=== PATIENT | female | born 1940 | race Caucasian/White ===

== ENCOUNTER 2023-03-31 09:55 | Outpatient (CLI) | payer MEDICARE, BC, SELFPAY ==
[2023-03-31 10:54] LABS: Basophils Absolute Auto 0.1 K/mm3 (0.0-0.1); Basophils Percent Auto 1.1 % (0.2-1.2); Eosinophils Absolute Auto 0.1 K/mm3 (0-0.3); Eosinophils Percent Auto 2.6 % (0-4.4); Hematocrit 36.7 % (37.0-47.0); Hemoglobin 11.7 g/dL (12.0-15.0); Immature Granulocyte Absolute 0.01 K/mm3 (0.00-0.031); Immature Granulocyte Percent A 0.2 % (0-0.5); Lymphocytes Absolute Auto 0.78 K/mm3 (0.9-3.2); Lymphocytes Percent Auto 14.3 % (18.3-44.2); Mean Corpuscular HGB Conc 31.9 g/dl (32-36); Mean Corpuscular Hemoglobin 31.7 pg (26-34); Mean Corpuscular Volume 99.5 fl (80-100); Mean Platelet Volume 10.4 fl (7.4-10.4); Monocytes Absolute Auto 0.4 K/mm3 (0.1-0.6); Monocytes Percent Auto 6.8 % (2.6-8.5); Neutrophils Absolute Auto 4.1 K/mm3 (1.3-6.7); Platelet Count Result 254 k/mm3 (150-375); Red Blood Count 3.69 M/mm3 (4.2-5.4); Red Cell Distribution Width 13.3 % (11.5-14.5); White Blood Count 5.4 K/mm3 (4.5-10.0)
[2023-03-31 11:01] LABS: Add Urine Microscopic? YES; Appearance Urine Turbid (Clear); Bacteria Urine None Seen /hpf; Bilirubin Urine Negative (Negative); Blood Urine Negative (Negative); Color Urine Yellow (Yellow); Glucose Urine UA Negative (Negative); Ketones Urine Negative (Negative); Leukocyte Esterase Ur Negative LEU/UL (NEGATIVE); Nitrate Urine Negative (Negative); Non Pathogenic Casts 0-2; Protein Urine Negative (Negative); RBC Urine 0-2 /hpf (0-2); Specific Grav Ur 1.009 (1.001-1.035); Squamous Epithelial Cell Urine None seen /hpf (Few); Urobilinogen Urine 0.2 mg/dL (<2.0); WBC Urine 0-5 /hpf (0-3)
[2023-03-31 11:05] LABS: Cholesterol 189 mg/dL (0-200); HDL Direct 74 mg/dL; Triglycerides 77 mg/dL (<150)
[2023-03-31 11:06] LABS: Alanine Aminotransferase 17 U/L (6-35); Albumin Level 4.1 g/dL (3.5-5.1); Alkaline Phosphatase 71 U/L (38-126); Anion Gap 5 mmol/L (8-16); Aspartate Amino Transferase 21 U/L (14-36); Bilirubin,Total 0.6 mg/dL (0.2-1.3); Blood Urea Nitrogen 13 mg/dL (7-17); Calcium 9.9 mg/dL (8.4-10.2); Carbon Dioxide 27 mmol/L (22-30); Chloride 103 mmol/L (98-107); Estimated Glomerular Filt Rate > 60; Glucose 94 mg/dL (65-110); Potassium 3.8 mmol/L (3.4-5.0); Sodium 135 mmol/L (137-145)
[2023-03-31 11:15] LABS: LDL Cholesterol Direct 86 mg/dL
[2023-03-31 11:26] LABS: Vitamin D 25 Hydroxy 79.5 ng/mL
== END 2023-03-31 09:56 | disposition home or self-care (01) ==
PROVIDERS: PCP Nurse Practitioner Family; Visit Provider Nurse Practitioner Family
DX: R30.0 Dysuria (principal); Z78.0 Asymptomatic menopausal state; Z13.0 Encounter for screening for diseases of the blood and blood-forming organs and certain disorders involving the immune mechanism; Z13.228 Encounter for screening for other metabolic disorders; Z79.899 Other long term (current) drug therapy
CPT/HCPCS: 36415; 80053; 80061; 81001; 82306; 85025; 87086

== ENCOUNTER 2023-06-20 11:19 | Outpatient (CLI) | payer MEDICARE, BC, SELFPAY ==
[2023-06-20 12:15] LABS: Appearance Urine Cloudy (Clear); Bacteria Urine None Seen /hpf; Bilirubin Urine Negative (Negative); Blood Urine Trace (Negative); Color Urine Yellow (Yellow); Glucose Urine UA Negative (Negative); Ketones Urine Negative (Negative); Leukocyte Esterase Ur 3+ LEU/UL (NEGATIVE); Need Manual Microscopic Reviewed; Nitrate Urine Negative (Negative); Protein Urine Negative (Negative); RBC Urine 0-2 /hpf (0-2); Specific Grav Ur 1.004 (1.001-1.035); Squamous Epithelial Cell Urine None seen /hpf (Few); Urobilinogen Urine 0.2 mg/dL (<2.0); WBC Urine >100 /hpf (0-3)
[2023-06-20 12:23] LABS: Add Urine Microscopic? YES
== END 2023-06-20 11:20 | disposition home or self-care (01) ==
PROVIDERS: PCP Nurse Practitioner Family; Visit Provider Nurse Practitioner Family
DX: R30.0 Dysuria (principal)
CPT/HCPCS: 81001; 87077; 87086; 87186

== ENCOUNTER 2023-07-27 09:11 | Outpatient (CLI) | payer MEDICARE, BC, SELFPAY ==
[2023-07-27 09:41] LABS: Appearance Urine Cloudy (Clear); Bacteria Urine 1+ /hpf; Bilirubin Urine Negative (Negative); Blood Urine 1+ (Negative); Color Urine Yellow (Yellow); Glucose Urine UA Negative (Negative); Ketones Urine Negative (Negative); Leukocyte Esterase Ur 3+ LEU/UL (NEGATIVE); Nitrate Urine Negative (Negative); Non Pathogenic Casts 0-2; Protein Urine Negative (Negative); RBC Urine 0-2 /hpf (0-2); Specific Grav Ur 1.006 (1.001-1.035); Squamous Epithelial Cell Urine None seen /hpf (Few); Urobilinogen Urine 0.2 mg/dL (<2.0); WBC Urine >100 /hpf (0-3); pH Urine 7.5 (5.0-9.0)
[2023-07-27 09:48] LABS: Add Urine Microscopic? YES
== END 2023-07-27 09:12 | disposition home or self-care (01) ==
LOC: ANHLAB 09:13
PROVIDERS: PCP Nurse Practitioner Family; Visit Provider Nurse Practitioner Family
DX: R30.0 Dysuria (principal)
CPT/HCPCS: 81001; 87077; 87086; 87088; 87186

== ENCOUNTER 2023-08-04 13:13 | Outpatient (CLI) | payer MEDICARE, BC, SELFPAY ==
[2023-08-04 15:16] LABS: Basophils Absolute Auto 0.1 K/mm3 (0.0-0.1); Basophils Percent Auto 0.8 % (0.2-1.2); Eosinophils Absolute Auto 0.2 K/mm3 (0-0.3); Hematocrit 38.5 % (37.0-47.0); Hemoglobin 11.8 g/dL (12.0-15.0); Immature Granulocyte Absolute 0.02 K/mm3 (0.00-0.031); Immature Granulocyte Percent A 0.3 % (0-0.5); Lymphocytes Percent Auto 15.7 % (18.3-44.2); Mean Corpuscular HGB Conc 30.6 g/dl (32-36); Mean Corpuscular Hemoglobin 31.6 pg (26-34); Mean Corpuscular Volume 102.9 fl (80-100); Mean Platelet Volume 10.4 fl (7.4-10.4); Monocytes Absolute Auto 0.4 K/mm3 (0.1-0.6); Monocytes Percent Auto 5.4 % (2.6-8.5); Neutrophils Absolute Auto 5.8 K/mm3 (1.3-6.7); Neutrophils Percent Auto 75.8 % (45.5-73.1); Platelet Count Result 286 k/mm3 (150-375); Red Blood Count 3.74 M/mm3 (4.2-5.4); White Blood Count 7.7 K/mm3 (4.5-10.0)
[2023-08-04 15:26] LABS: Appearance Urine Clear (Clear); Bilirubin Urine Negative (Negative); Blood Urine Negative (Negative); Color Urine Yellow (Yellow); Glucose Urine UA Negative (Negative); Ketones Urine Negative (Negative); Leukocyte Esterase Ur Negative LEU/UL (NEGATIVE); Nitrate Urine Negative (Negative); Protein Urine Negative (Negative); Specific Grav Ur 1.004 (1.001-1.035); Urobilinogen Urine 0.2 mg/dL (<2.0); pH Urine 7.5 (5.0-9.0)
[2023-08-04 15:28] LABS: Alanine Aminotransferase 19 U/L (6-35); Albumin Level 4.3 g/dL (3.5-5.1); Alkaline Phosphatase 87 U/L (38-126); Anion Gap 5 mmol/L (8-16); Aspartate Amino Transferase 28 U/L (14-36); Bilirubin,Total 0.4 mg/dL (0.2-1.3); Blood Urea Nitrogen 17 mg/dL (7-17); Calcium 10.7 mg/dL (8.4-10.2); Carbon Dioxide 29 mmol/L (22-30); Chloride 102 mmol/L (98-107); Estimated Glomerular Filt Rate > 60; Glucose 94 mg/dL (65-110); Potassium 3.7 mmol/L (3.4-5.0); Sodium 136 mmol/L (137-145)
[2023-08-04 15:32] LABS: Add Urine Microscopic? NO
[2023-08-04 16:09] LABS: Vitamin D 25 Hydroxy 74.9 ng/mL
== END 2023-08-04 13:14 | disposition home or self-care (01) ==
LOC: ANHLAB 13:16
PROVIDERS: PCP Nurse Practitioner Family; Visit Provider Nurse Practitioner Family
DX: N39.0 Urinary tract infection, site not specified (principal); E55.9 Vitamin D deficiency, unspecified; M81.0 Age-related osteoporosis without current pathological fracture; Z13.228 Encounter for screening for other metabolic disorders; Z13.0 Encounter for screening for diseases of the blood and blood-forming organs and certain disorders involving the immune mechanism
CPT/HCPCS: 36415; 80053; 81003; 82306; 85025; 87086

== ENCOUNTER 2024-01-17 12:26 | Outpatient (CLI) | payer MEDICARE, BC, SELFPAY ==
[2024-01-17 13:16] LABS: Add Urine Microscopic? YES; Appearance Urine Turbid (Clear); Bacteria Urine 4+ /hpf; Bilirubin Urine Negative (Negative); Blood Urine 2+ (Negative); Color Urine Yellow (Yellow); Glucose Urine UA Negative (Negative); Ketones Urine 1+ mg/dL (Negative); Leukocyte Esterase Ur 3+ LEU/UL (Negative); Nitrate Urine Positive (Negative); Non Pathogenic Casts 0-2; Protein Urine 1+ mg/dL (Negative); RBC Urine 0-2 /hpf (0-2); Specific Grav Ur 1.009 (1.001-1.035); Squamous Epithelial Cell Urine None Seen /hpf (Few); Urobilinogen Urine 0.2 mg/dL (<2.0); WBC Urine >100 /hpf (0-3); pH Urine 6.5 (5.0-9.0)
== END 2024-01-17 12:27 | disposition home or self-care (01) ==
LOC: ANHLAB 12:28
PROVIDERS: PCP Nurse Practitioner Family; Referring Provider Nurse Practitioner Family; Visit Provider Orthopaedic Surgery
DX: N39.0 Urinary tract infection, site not specified (principal)
CPT/HCPCS: 81001; 87077; 87086; 87088; 87186

== ENCOUNTER 2024-02-03 10:45 | Outpatient (CLI) | payer MEDICARE, BC, SELFPAY ==
--- NOTE | ~2024-02-03 | DEXA_ITS ---
Bone Density Report Name: RAHEEM JULIEN Age: 83 Sex: Female Ethnicity: White Date of : 1940 Indication: postmenopausal; screening for osteoporosis; height loss; history of glucocorticoids; prior fracture; hysterectomy; Referring Provider: LORENA GARAY Study: Bone densitometry was performed. Exam Date: February 03, 2024 Accession number: [id number] Bone Density: Region BMD T-score Z-score Classification AP Spine(L1-L4) 0.544 -4.6 -1.7 Osteoporosis Femoral Neck (Left) 0.411 -3.9 -1.5 Osteoporosis Total Hip (Left) 0.454 -4.0 -1.7 Osteoporosis World Health Organization criteria for BMD impression classify patients as: Normal (T-score at or above -1.0), Osteopenia (T-score between -1.0 and -2.5), or Osteoporosis (T-score at or below -2.5). 10-year Fracture Risk: FRAX not reported because: Some T-score for Spine Total or Hip Total or Femoral Neck at or below -2.5 Prior hip or vertebral fracture Treated for osteoporosis Clinical Information Provided by Patient: Have had a previous hip or vertebral fracture Has had a low trauma fracture Has taken Glucocorticoids Is being treated for osteoporosis Has used the following medications: Prolia (i.e. denosumab), Vitamin D, Calcium Has the following medical conditions: Hysterectomy Patient maximum height was 62 Menopause Age: 58 Drinks caffeinated beverages Onset of menses at age 12 Number of children 3 Impression: The patient has established osteoporosis, based on the Total Spine T-score and the existence of a prior fracture. The patient has risk factors, including: previous fracture, history of glucocorticoid therapy. Discussion: It is important to ask patients whether they are taking their medications and to encourage continued and appropriate compliance with their osteoporosis therapies to reduce fracture risk. It is also important to review their risk factors and encourage appropriate calcium and vitamin D intakes, exercise, fall prevention and other lifestyle measures. Follow-Up: Consider a repeat BMD and Vertebral Fracture Assessment (VFA) exam in 2 years or sooner if medically necessary, to reassess this patient's status. Reported by: MARTIN on 02/03/2024 11:18:00 AM. Reviewed, dictated and finalized at location AAaron TRISTAN
== END 2024-02-03 10:46 | disposition home or self-care (01) ==
LOC: ANHIMG 10:48
PROVIDERS: PCP Nurse Practitioner Family; Visit Provider Nurse Practitioner Family
DX: M81.0 Age-related osteoporosis without current pathological fracture (principal)
CPT/HCPCS: 77080

== ENCOUNTER 2024-03-19 11:40 | Outpatient (CLI) | payer MEDICARE, BC, SELFPAY ==
[2024-03-19 12:15] LABS: Hematocrit 35.9 % (37.0-47.0); Mean Corpuscular HGB Conc 33.4 g/dl (32-36); Mean Corpuscular Hemoglobin 32.9 pg (26-34); Mean Corpuscular Volume 98.4 fl (80-100); Mean Platelet Volume 9.6 fl (7.4-10.4); Platelet Count Result 270 k/mm3 (150-375); Red Blood Count 3.65 M/mm3 (4.2-5.4); Red Cell Distribution Width 13.3 % (11.5-14.5); White Blood Count 5.2 K/mm3 (4.5-10.0)
[2024-03-19 12:40] LABS: Add Urine Microscopic? NO; Appearance Urine Clear (Clear); Bilirubin Urine Negative (Negative); Blood Urine Negative (Negative); Color Urine Yellow (Yellow); Glucose Urine UA Negative (Negative); Ketones Urine Negative (Negative); Leukocyte Esterase Ur Negative LEU/UL (Negative); Nitrate Urine Negative (Negative); Protein Urine Negative (Negative); Specific Grav Ur 1.004 (1.001-1.035); Urobilinogen Urine 0.2 mg/dL (<2.0)
[2024-03-19 12:44] LABS: Alanine Aminotransferase 18 U/L (6-35); Albumin Level 4.4 g/dL (3.5-5.1); Alkaline Phosphatase 62 U/L (38-126); Anion Gap 7 mmol/L (4-12); Aspartate Amino Transferase 26 U/L (14-36); Bilirubin,Total 0.5 mg/dL (0.2-1.3); Blood Urea Nitrogen 8 mg/dL (7-17); Calcium 10.9 mg/dL (8.4-10.2); Carbon Dioxide 25 mmol/L (22-30); Chloride 102 mmol/L (98-107); Estimated Glomerular Filt Rate > 60; Glucose 89 mg/dL (65-110); Potassium 3.9 mmol/L (3.4-5.0); Sodium 134 mmol/L (137-145)
== END 2024-03-19 11:41 | disposition home or self-care (01) ==
LOC: ANHLAB 11:43
PROVIDERS: PCP Nurse Practitioner Family; Visit Provider Nurse Practitioner Family
DX: R30.0 Dysuria (principal); M81.0 Age-related osteoporosis without current pathological fracture; N39.0 Urinary tract infection, site not specified; R32 Unspecified urinary incontinence; E55.9 Vitamin D deficiency, unspecified
CPT/HCPCS: 36415; 80053; 81003; 82306; 85027; 87086

== ENCOUNTER 2024-05-07 16:05 | Outpatient (CLI) | payer MEDICARE, BC, SELFPAY | END 2024-05-07 16:06 | disposition home or self-care (01) | PROVIDERS: PCP Nurse Practitioner Family | DX: N30.00 Acute cystitis without hematuria (principal) | CPT/HCPCS: 87077; 87086; 87186 ==

== ENCOUNTER 2025-02-18 11:40 | Outpatient (CLI) | payer MEDICARE, BC, SELFPAY ==
[2025-02-18 12:19] LABS: Hematocrit 36.3 % (37.0-47.0); Hemoglobin 11.7 g/dL (12.0-15.0); Mean Corpuscular HGB Conc 32.2 g/dl (32-36); Mean Corpuscular Hemoglobin 31.2 pg (26-34); Mean Corpuscular Volume 96.8 fl (80-100); Platelet Count Result 308 k/mm3 (150-375); Red Blood Count 3.75 M/mm3 (4.2-5.4); White Blood Count 6.9 K/mm3 (4.5-10.0)
--- OUTSIDE RECORDS SUMMARY | 2025-02-18 12:19 | XMS_ITS | Clinical Summary ---
Author Organization [facility] Address [address] [place] [address] Care Team Providers Care Inspector Brake Lining Name Role Phone Bernice Castro SHILPI-ROOF PROMENADE TILE SETTER Primary Care Provider + Source Comments [facility],non-owned Affiliates and Associated Physician Practices is amultiple site organization consisting of ambulatory clinics and hospital sitesin [place], [place], [place] and [place]. This disclosure is being madepursuant to the Care Everywhere program and may not contain all information available regarding this patient. Last updated 18.[facility] Allergies Active Allergy Reactions Criticality Noted Date Comments Aminoglycosides Nausea and/or Vomiting Low 09/23/2021 Cefuroxime Unknown Medium 11/04/2019 Cumin Oil Unknown Medium 11/04/2019 Latex Unknown Medium 11/04/2019 Molds & Smuts Unknown 11/04/2019 Nickel Other Medium 11/04/2019 inflammatory Nitrofurantoin Nausea and/or Vomiting Low 01/09/2020 Flu like symptoms Peanut-Derived Other Medium 11/04/2019 abd pain Other reaction(s): Other (See Comments) abd pain Wound Dressing Adhesive Other 04/08/2024 Redness and soreness Penicillins Rash Medium 11/04/2019 Sulfa Drugs Nausea and/or Vomiting Medium 11/04/2019 Medications * Be aware that medications may not be up to date on this document. Alwaysverify current medications with the patient. aspirin EC (Ecotrin) 81 MG tablet Take 1 (one) tablet by mouth Twice Daily, Three Times a Week Take 81 mg 3 times daily weekly Active Multiple Vitamins-Minera ls (CENTRUM SILVER 50+WOMEN PO) Take by mouth 2 times daily Gummy 2 times daily Active Calcium-Phospho jay-Vitamin D (CALCIUM/D3 ADULT GUMMIES PO) Take 500 mg by mouth 2 times daily Active senna (Senokot) 8.6 MG tablet Take 1 (one) tablet by mouth as needed for Constipation Active Famotidine-Ca Carb-Mag Hydrox (Pepcid Complete) 10-800-165 MG Take 10 mg by mouth once daily Take half daily Active Chlorpheniramin e-Phenylephrine (GNP Sinus & Allergy PE) 4-10 MG Take 1 (one) tablet by mouth Two times a week Active cephalexin (Keflex) 500 MG capsule Take 1 (one) capsule by mouth as needed (dental procedure) 4 tablets prior to dental procedure Active fosfomycin (Monurol) 3 g packet Take 3 (three) g by mouth as directed 3 g 1 4 Active methenamine hippurate (Hiprex) 1 GM tabletIndicatio ns:Recurrent UTI Take 1 (one) tablet by mouth 2 times daily 60 tablet 5 4 Active estrogens, conjugated, (Premarin) 0.625 MG/GM vaginal cream 4 Active ciprofloxacin (Cipro) 250 MG tabletIndicatio ns:Recurrent UTI Take 1 (one) tablet by mouth 2 times daily 4 tablet 5 Active trimethoprim (Trimpex) 100 MG tabletIndicatio ns:Recurrent UTI Take 1 (one) tablet by mouth once daily 30 tablet 6 5 Active Family History Medical History Relation Name Comments Diabetes; unknown type Father Parkinson's Disease Mother Relation Name Status Comments Father Mother Social History Tobacco Use Types Packs/Day Years Used Date Smoking Tobacco: Never Smokeless Tobacco: Never Tobacco Cessation:Counseling Given: Not Answered Alcohol Use Standard Drinks/Week Comments Yes 1 (1 standard drink = 0.6 oz pur e alcohol) PHQ-2 Answer Date Recorded Patient Health Questionnaire-2 Score 0 04/03/2024 Comments No Sex and Gender Information Value Date Recorded Sex Assigned at Not on file Legal Sex Female 12:47 PM CDT Gender Identity Not on file Sexual Orientation Not on file Last Filed Vital Signs Vital Sign Reading Time Taken Comments Blood Pressure 138/82 07/22/2024 10:52 AM RN PHYSICIAN OFFICE Pulse 68 07/22/2024 10:52 AM RN PHYSICIAN OFFICE Temperature - - Respiratory Rate - - Oxygen Saturation - - Inhaled Oxygen Concentration - - Weight 53.8 kg (118 lb 9.6 oz) 07/22/2024 10:52 AM RN PHYSICIAN OFFICE Height 149.9 cm (4' 11) 07/22/2024 10:52 AM RN PHYSICIAN OFFICE Body Mass Index 23.95 07/22/2024 10:52 AM RN PHYSICIAN OFFICE Plan of Treatment Health Maintenance Due Date Last Done Comments MEDICARE AWV 12 MONTHS 1940 DTAP/TDAP/TD VACCINES (1 - Tdap) 1959 PNEUMOCOCCAL VACCINE 50+ (1 of 1 - PCV) 1990 ZOSTER VACCINE (1 of 2) 1990 Respiratory Syncytial Virus (RSV) Vaccine Pt: or over 60 yrs (1 - 1-dose 75+ series) 2015 DEPRESSION SCREENING 05/29/2024 COVID-19 VACCINE ( season) 2025 11/21/2022, 02/24/2022, 04/08/2021, Additional history exists INFLUENZA VACCINE (#1) 2025 , 04/28/2022, 03/25/2021, Additional history exists BONE DENSITY TESTING Completed 11/17/2021, 07/17/2019, 03/24/2015 HEPATITIS B VACCINE Aged Out No longe r eligible based on patient's age to complete this topic HIB VACCINE Aged Out No longer eligi ble based on patient's age to complete this topic HPV VACCINE Aged Out No longer eligi ble based on patient's age to complete this topic MENINGOCOCCAL (Group B) VACCINE SHARED DECISION-MAKING Aged Out No longer eligible based on patient's age to complete this topic MENINGOCOCCAL GROUPS A/C/Y/W VACCINE Aged Out No longer eligible based on patient's age to complete this topic Insurance MEDICARE ANTHEM Care Teams Inspector Brake Lining Relationship Specialty Start Date End Date Bernice Castro APRN-CNP [address] [place] [id number] PCP - General Nurse Practitioner 03/18/24
--- OUTSIDE RECORDS SUMMARY | 2025-02-18 12:19 | XMS_ITS | Clinical Summary ---
Author Organization [facility] Address [facility] [place] [address] Care Team Providers Care Operations Specialists Name Role Phone Unavailable Primary Care Provider Unavailabl e Social History Tobacco Use Types Packs/Day Years Used Date Smoking Tobacco: Never Comments Unknown Sex and Gender Information Value Date Recorded Sex Assigned at Not on file Legal Sex Female 9:40 PM CDT Gender Identity Not on file Sexual Orientation Not on file Last Filed Vital Signs Vital Sign Reading Time Taken Comments Blood Pressure 92/52 10/12/2009 9:41 AM CDT Pulse 66 10/12/2009 9:41 AM CDT Regul ar Temperature - - Respiratory Rate 12 10/12/2009 9:41 AM CDT R egular Oxygen Saturation - - Inhaled Oxygen Concentration - - Weight 60.1 kg (132 lb 9.6 oz) 10/12/2009 9:41 A M CDT Height 157.5 cm (5' 2) 10/12/2009 9:41 AM CDT Body Mass Index 24.25 10/12/2009 9:41 AM CDT Plan of Treatment Health Maintenance Due Date Last Done Comments DTaP, Tdap and Td Vaccines ( 1 - Tdap) 1959 Pneumococcal Vaccine: 50+ Ye ars (1 of 1 - PCV) 1990 Zoster Vaccines (1 of 2) 1990 Dexa Scan (General) 2005 RSV Immunization or 60+ Years (1 - 1-dose 75+ series) 2015 COVID-19 Vaccine ( - 2023-2 5 season) 2025 Meningococcal B Vaccine Aged Out No l onger eligible based on patient's age to complete this topic Meningococcal Vaccine Aged Out No ole majo eligible based on patient's age to complete this topic RSV Immunizations Under 20 Months Aged Out No longer eligible based on patient's age to complete this topic
--- OUTSIDE RECORDS SUMMARY | 2025-02-18 12:19 | XMS_ITS | Encounter Summary ---
Author Organization [facility] Address [address] [place] [address] Care Team Providers Care Record Clerk Name Role Phone Julian Phelps DO Primary Care Provider Encounter Details Date Type Department Care Team (Late st Contact Info) Description 05/17/2004 Emergency [facility] Ricardo Engle MD NO ADDRESS ON FILE Er, Authorized P NO ADDRESS ON FILE CONTUSION OF KNEE (Primary Dx) Social History Tobacco Use Types Packs/Day Years Used Date Smoking Tobacco: Never Assessed Comments Unknown Sex and Gender Information Value Date Recorded Sex Assigned at Not on file Legal Sex Female 3:13 AM TRANSMISSION MECHANIC Gender Identity Not on file Sexual Orientation Not on file documented as of this encounter Plan of Treatment Not on file documented as of this encounter Visit Diagnoses Diagnosis Contusion of knee- Primary documented in this encounter Care Teams Record Clerk Relationship Specialty Start Date End Date Julian Phelps DO [address] [place] [address] PCP - General Family Practice 11/19/21 documented as of this encounter
--- OUTSIDE RECORDS SUMMARY | 2025-02-18 12:19 | XMS_ITS | Clinical Summary ---
Author Organization [facility] Address [address] [place] [address] Phone Care Team Providers Care Ict Support Engineer Name Role Phone Julian Phelps Primary Care Provider Allergies Active Allergy Reactions Criticality Noted Date Comments Latex Rash Low 03/11/2022 Neomycin Nausea and Vomiting Low 09/23/2021 Peanut Other (See Comments) Medium 11/04/2019 abd pain Penicillins Rash Medium 11/04/2019 Tobramycin Nausea and Vomiting Low 09/23/2021 Medications cholecalciferol (VITAMIN D3) 10 mcg/mL (400 unit/mL) Drops Take 400 Units by mouth daily. 2 Active multivitamins-m inerals-lutein (CENTRUM SILVER) Tablet Take 1 Tablet by mouth daily. Active Calcium-Choleca lciferol, D3, (OSCAL) 250 mg-3.125 mcg (125 unit) per tablet Take 1 Tablet by mouth daily. 2 Active fluticasone propionate (FLONASE) 50 mcg/spray [place]der[place]ott, Suspension nasal inhaler Administer 2 Sprays in each nostril daily. Active oxyCODONE (ROXICODONE) 5 mg tabletIndicatio ns:Closed fracture of neck of right femur, initial encounter ([facility]) [The details of the medication are not available because there are pending changes by a home health clinician.] 10 Tablet 03/16/2022 1:57 PM CDT 2 Active Additional Information Patient taking differently:5 mg Oral EVERY 4 HOURS PRN,Pain, Severe, Reported on 03/23/2022 aspirin (ECOTRIN EC) 81 mg Tablet, Delayed Release (E.C.) Take 1 Tablet (81 mg) by mouth every 12 hours. Start first dose evening of discharge from the hospital 60 Tablet 1 03/16/2022 1:57 PM CDT 2 Active sennosides-docu sate sodium (SENNA-S) 8.6-50 mg tablet Take 1 Tablet by mouth 2 times daily. 100 Tablet 1 03/16/2022 1:57 PM CDT 2 Active acetaminophen (TYLENOL) 500 mg tablet [The details of the medication are not available because there are pending changes by a home health clinician.] 100 Tablet 03/16/2022 1:57 PM CDT 2 Active Additional Information Patient taking differently:1,000 mg OralEVERY 8 HOURS PRN, Pain, Mild, Reported on 03/23/2022 celecoxib (CeleBREX) 200 mg capsule [The details of the medication are not available because there are pending changes by a home health clinician.] 60 Capsule 1 03/16/2022 1:57 PM CDT 2 Active Additional Information Patient taking differently:200 mg OralTWO TIMES DAILY PRN, Pain, moderate, Reported on 03/18/2022 acetaminophen (TYLENOL) 500 mg tablet Take 2 Tablets (1,000 mg) by mouth every 6 hours as needed for Pain. 2 Tablet 2 Active cephALEXin (KEFLEX) 500 mg capsule Take 4 Capsules (2,000 mg) by mouth one time for 1 dose. Take 4 capsules one hour prior to dental procedures 8 Capsule 2 2 Active cephALEXin (KEFLEX) 500 mg capsule Take 4 Capsules (2,000 mg) by mouth one time for 1 dose. Take 4 capsules one hour prior to dental procedures 8 Capsule 2 2 Active Active Problems Problem Noted Date Diagnosed Date Right hip pain 03/12/2022 Closed fracture of neck of right femur 2 Family History Medical History Relation Name Comments Colon Cancer Neg Hx Social History Tobacco Use Types Packs/Day Years Used Date Smoking Tobacco: Never Smokeless Tobacco: Never Tobacco Cessation:Counseling Given: Not Answered Alcohol Use Standard Drinks/Week Comments Not Currently 0 (1 standard drink = 0.6 oz pur e alcohol) socially, 1/month Comments No Sex and Gender Information Value Date Recorded Sex Assigned at Not on file Legal Sex 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 Gender Identity Not on file Sexual Orientation Not on file Last Filed Vital Signs Vital Sign Reading Time Taken Comments Blood Pressure 118/72 04/26/2022 2:10 PM RAIL DETECTOR CAR OPERATOR Pulse 76 04/26/2022 2:10 PM RAIL DETECTOR CAR OPERATOR Temperature 36.8 C (98.2 F) 04/26/2022 2:10 PM RAIL DETECTOR CAR OPERATOR Respiratory Rate 18 04/26/2022 2:10 PM RAIL DETECTOR CAR OPERATOR Oxygen Saturation 97% 04/26/2022 2:10 PM RAIL DETECTOR CAR OPERATOR Inhaled Oxygen Concentration - - Weight 49.4 kg (108 lb 12.8 oz) 022 12:21 PM CDT Height 149.9 cm (4' 11) 03/14/2022 12: 21 PM CDT Body Mass Index 21.97 03/14/2022 12:21 PM CDT Plan of Treatment Health Maintenance Due Date Last Done Comments ZOSTER VACCINE (1 of 2) 1990 RSV VACCINE (60+ or ) (1 - 1-dose 75+ series) 2015 INFLUENZA VACCINE (#1) 2024 2, 03/25/2021, 03/19/2020, Additional history exists COVID-19 Vaccine (3 - 2024-2 6 season) 2025 02/24/2022, 04/08/2021 OSTEOPOROSIS SCREENING 11/17/2026 2, 11/17/2021, 07/17/2019, Additional history exists DTAP/TDAP/TD VACCINES (2 - T d or Tdap) 12/24/2028 12/24/2018 PNEUMOCOCCAL VACCINE 50+ YEARS Completed 11/19/2020 , 01/11/2019 Medical Devices Implanted Type Area Field Human Resources Manager Device Identifier Shelf Expiration Date Model / Serial / Lot Bone Plug Intramedullary [id number] - [id number] Implanted:Qty: 1 on 03/14/2022 by Andrew Wynn MD at [facility] Bone Right: Hip [employer] [id number] 09/26/2026 [id number] / / [id number] Cement R Refobacin 1x40gm [id number] - [id number] Implanted:Qty: 2 on 03/14/2022 by Andrew Wynn MD at [facility] Cement Right: Hip [employer] [id number] 03/28/2024 [id number] / / [id number] Centralizer Dist 13mm [id number] - [id number] Implanted:Qty: 1 on 03/14/2022 by Andrew Wynn MD at [facility] Hip Right: Hip [employer] 11/21/2031 [id number] / / [id number] Stem Fem Echo Fx 11mm [id number] - [id number] Implanted:Qty: 1 on 03/14/2022 by Andrew Wynn MD at [facility] Hip Right: Hip [employer] [id number] 01/06/2032 [id number] / / [id number] Liner Acet Bipolar [id number] -[id number] - [id number] Implanted:Qty: 1 on 03/14/2022 by Andrew Wynn MD at [facility] Hip Right: Hip [employer] [id number] 02/23/[id number] / / [id number] Head Fem Mod Cocr 28mm -3mm [id number] - [id number] Implanted:Qty: 1 on 03/14/2022 by Andrew Wynn MD at [facility] Hip Right: Hip [employer] 11/03/2031 [id number] / / [id number] Cataract Lens Bilater al: Eye Insurance MEDICARE PART A AND B [facility] FEDERAL MEDICARE PART A AND B RX [facility] [employer] RX [employer] (INTERNAL) [facility] Internal Plans Advance Directives For more information, please contact: [phone] Documents on File Type Date Recorded Patient Personal Service Workers Expl anation Advance Directive Living Will 03/14/2022 12:06 PM Advance Directive Living Will * Full Code (Latest Code Status on File) Date Activated Date Inactivated Comments 03/14/2022 7:19 PM 03/16/2022 4:38 PM * Full Code Date Activated Date Inactivated Comments 12/17/2021 10:30 AM 12/17/2021 1:54 PM Care Teams Ict Support Engineer Relationship Specialty Start Date End Date Julian Phelps DO [address] [place] [phone] PCP - General Family Practice 11/19/21
[2025-02-18 12:24] LABS: Add Urine Microscopic? YES; Appearance Urine Cloudy (Clear); Glucose Urine UA Negative (Negative); Leukocyte Esterase Ur 3+ LEU/UL (Negative); Nitrate Urine Positive (Negative); Non Pathogenic Casts 0-2; Specific Grav Ur 1.006 (1.001-1.035)
[2025-02-18 12:44] LABS: Alanine Aminotransferase 20 U/L (6-35); Albumin Level 4.3 g/dL (3.5-5.1); Alkaline Phosphatase 77 U/L (38-126); Anion Gap 7 mmol/L (4-12); Aspartate Amino Transferase 32 U/L (14-36); Bilirubin,Total 0.5 mg/dL (0.2-1.3); Blood Urea Nitrogen 13 mg/dL (7-17); Calcium 9.9 mg/dL (8.4-10.2); Carbon Dioxide 24 mmol/L (22-30); Chloride 103 mmol/L (98-107); Estimated Glomerular Filt Rate > 60; Glucose 93 mg/dL (65-110); Potassium 4.4 mmol/L (3.4-5.0); Sodium 134 mmol/L (137-145); Total Protein 7.2 g/dL (6.3-8.2)
[2025-02-18 12:55] LABS: Parathyroid Intact 99.7 pg/mL (14.5-75.2)
[2025-02-19 09:08] LABS: Calcium, Ionized 5.6 mg/dL (4.5-5.6)
== END 2025-02-18 11:41 | disposition home or self-care (01) ==
PROVIDERS: PCP Nurse Practitioner Family; Visit Provider Nurse Practitioner Family
DX: M81.0 Age-related osteoporosis without current pathological fracture (principal); R09.82 Postnasal drip; E83.52 Hypercalcemia; R32 Unspecified urinary incontinence; N39.0 Urinary tract infection, site not specified; N95.2 Postmenopausal atrophic vaginitis; M17.5 Other unilateral secondary osteoarthritis of knee; M54.2 Cervicalgia
CPT/HCPCS: 36415; 80053; 81001; 82306; 82330; 83970; 85027; 87086; 87186